=== PATIENT | female | born 1965 | race Caucasian/White ===

== ENCOUNTER → 2020-11-03 09:48 | Outpatient (CLI) | payer BC, SELFPAY ==
--- NOTE | ~2020-11-03 | XR_ITS ---
EXAMINATION: XR heel LT min 2V DATE: 11/03/2020 10:09 INDICATION: Left heel pain. TECHNIQUE: 2 views of left calcaneus were obtained. COMPARISON: None. FINDINGS: Bone alignment is normal. No fracture. Joint spaces are normal. There are enthesophytes at the posterior and plantar aspects of calcaneal tuberosity. IMPRESSION: 1. No fracture. Reviewed, dictated and finalized at location A. IMPRESSION: 1. No fracture.
== END ==
PROVIDERS: PCP Family Medicine; Visit Provider Family Medicine
DX: M79.672 Pain in left foot (principal)
CPT/HCPCS: 73650

== ENCOUNTER → 2021-06-20 16:03 | Outpatient (CLI) | payer OTHER, BC, SELFPAY ==
--- NOTE | ~2021-06-20 | MR_ITS ---
EXAMINATION: MR shoulder LT wo con DATE: 06/20/2021 16:50 INDICATION: Left shoulder pain TECHNIQUE: Magnetic resonance imaging (MRI) of the left shoulder was performed without intravenous co ntrast. Sequences included axial PD-weighted FS FSE, coronal oblique PD-weighted FS FSE, coronal obli que T2-weighted FS FSE, sagittal PD-weighted FS FSE, and sagittal T1-weighted SE. COMPARISON: None. FINDINGS: Coracoacromial arch: The acromion undersurface is curved in morphology (type II). The coracoacromial ligament is normal. M ild acromioclavicular osteoarthritis. Rotator cuff: Mild tendinopathy without discrete tear at the infraspinatus tendon and conjoined portion of the supr aspinatus and infraspinatus tendons. The subscapularis tendon is normal. Normal rotator cuff muscle b ulk and signal. Biceps tendon, glenoid labrum and glenohumeral cartilage: Long head of the biceps tendon is normal. Superior, anterior to posterior tear of the glenoid labrum (SLAP tear) centimeters from the 12:30 position anteriorly to the 10:30 position posteriorly. Mild g lenohumeral osteoarthritis with partial thickness cartilage loss without degenerative subchondral matteo nges along the cephalad third of the glenoid as well as at the apex of the humeral head. Fluid: Physiologic amount of fluid in the glenohumeral joint and biceps tendon sheath. No loose osteochondr al bodies. Small amount of fluid in the subacromial/subdeltoid bursa consistent with mild bursitis. Bones: Normal marrow signal with no edema, fracture or pathologic marrow replacing process. IMPRESSION: 1. Mild left glenohumeral osteoarthritis with SLAP tear of the superior to posterior superior glenoid labrum. 2. Mild tendinopathy without tear at the infraspinatus tendon and conjoined portion of the supraspina tus/infraspinatus tendons. 3. Mild subacromial/subdeltoid bursitis. Reviewed, dictated and finalized at location A. IMPRESSION: 1. Mild left glenohumeral osteoarthritis with SLAP tear of the superior to post erior superior glenoid labrum. 2. Mild tendinopathy without tear at the infraspinatus tendon and conjoined por tion of the supraspinatus/infraspinatus tendons. 3. Mild subacromial/subdeltoid bursitis.
== END ==
PROVIDERS: Visit Provider Nurse Practitioner Family
DX: M19.012 Primary osteoarthritis, left shoulder (principal); S43.432A Superior glenoid labrum lesion of left shoulder, initial encounter; M75.52 Bursitis of left shoulder; S46.912A Strain of unspecified muscle, fascia and tendon at shoulder and upper arm level, left arm, initial encounter
CPT/HCPCS: 73221

== ENCOUNTER 2022-11-09 14:20 | Outpatient (CLI) | payer BC, SELFPAY ==
--- NOTE | 2022-11-09 | ECHO_ITS ---
Patient Info Name: Celena Farrell Age: 56 years : 1965 Gender: Female Ht: 67 in Wt: 205 lbs BSA: 2.13 m2 HR: 78 bpm BP: 124 / 72 mmHg Technical Quality: Fair Exam Date: 11/09/2022 3:12 PM Exam Location: [facility] Patient Status: Outpatient Admit Date: 11/09/2022 Staff Ordering Physician: EleazarKera NP City Administrator: Melissa Leung RDCS Attending Provider: Eleazar, Kera NICHOLE Exam Type: CA echo doppler color flow Study Info Indications - cardiac murmur Complete two-dimensional, color flow and Doppler transthoracic echocardiogram is performed. Summary 1. Complete two-dimensional, color flow and Doppler transthoracic echocardiogram is performed. 2. Left ventricular chamber dimension is normal. 3. Left ventricular systolic function is normal, estimated at 65-70%. 4. The left ventricular diastolic function is grade I diastolic dysfunction. 5. E/e' 6 is not elevated. 6. Left atrial chamber dimension is mildly enlarged. 7. Right atrial chamber dimension is mildly enlarged. 8. There is trace mitral valve regurgitation. 9. There is mild tricuspid valve regurgitation. 10. No pulmonary hypertension, estimated pulmonary arterial systolic pressure is 26 mmHg. Left Ventricle E/e' 6 is not elevated. Left ventricular chamber dimension is normal. Left ventricular systolic function is normal, estimated at 65-70%. The left ventricular diastolic function is grade I diastolic dysfunction. Right Ventricle Right ventricular chamber dimension is normal. Right ventricular systolic function is normal. Left Atria Left atrial chamber dimension is mildly enlarged. Right Atria Right atrial chamber dimension is mildly enlarged. Aortic Valve The aortic valve is trileaflet. There is no aortic valve stenosis. There is no aortic valve regurgitation. Pulmonic Valve There is no pulmonic regurgitation. Mitral Valve There is no mitral valve stenosis. There is trace mitral valve regurgitation. Tricuspid Valve There is mild tricuspid valve regurgitation. No pulmonary hypertension, estimated pulmonary arterial systolic pressure is 26 mmHg. Pericardium/Pleural There is no pericardial effusion. Inferior Vena Cava Normal inferior vena cava with >50% collapse upon inspiration consistent with normal right atrial pressure, 5 mmHg. Aorta The aortic root size at the sinus of Valsalva is normal. Left Ventricular Outflow Tract Name Value Normal LVOT 2D LVOT Diameter 2.0 cm LVOT Doppler LVOT Peak Gradient 3 mmHg LVOT Mean Gradient 2 mmHg LVOT VTI 19 cm LVOT VTI/AV VTI Ratio 0.7 LVOT Stroke Volume 57 ml LVOT CO 11.6 l/min LVOT CI 5.4 l/min/m2 Pulmonic Valve Name Value Normal PV Doppler PV Peak Gradient 3 mmHg M
== END 2022-11-09 14:21 | disposition home or self-care (01) ==
PROVIDERS: Visit Provider Nurse Practitioner Family
DX: R01.1 Cardiac murmur, unspecified (principal)
CPT/HCPCS: 93306

== ENCOUNTER → 2022-12-04 14:12 | Outpatient (CLI) | payer BC, SELFPAY ==
--- NOTE | ~2022-12-04 | MR_ITS ---
EXAMINATION: MR cervical spine wo con DATE: 12/04/2022 15:49 INDICATION: Paresthesias. Left arm pain. Left hand pain. Left leg numbness and pain. TECHNIQUE: Magnetic resonance imaging (MRI) of the cervical spine was performed without intravenous c ontrast. COMPARISON: None FINDINGS: There is mild kyphosis of cervical spine. There is 2 mm retrolisthesis of C5 on C6. Vertebr al body heights are normal. There is severely decreased disc height at C5-C6. The spinal cord signal intensity is normal. The following disc levels are specifically discussed: C2-C3: The disc does not extend beyond the endplate margin. There is no uncovertebral joint osteoarth ritis. There is mild bilateral facet joint osteoarthritis. There is no neural foraminal stenosis. The re is no central canal stenosis. C3-C4: The disc does not extend beyond the endplate margin. There is no uncovertebral joint osteoarth ritis. There is mild right facet joint osteoarthritis. There is no neural foraminal stenosis. There i s no central canal stenosis. C4-C5: The disc does not extend beyond the endplate margin. There is no uncovertebral joint osteoarth ritis. There is moderate left facet joint osteoarthritis. There is no neural foraminal stenosis. Ther e is no central canal stenosis. C5-C6: There is a central extrusion. There is severe bilateral uncovertebral joint osteoarthritis. Th ere is mild bilateral facet joint osteoarthritis. There is mild bilateral neural foraminal stenosis. There is mild central canal stenosis. C6-C7: There is a central extrusion that may originate from the C5-C6 disc. There is mild bilateral u ncovertebral joint osteoarthritis. There is no facet joint osteoarthritis. There is no neural foramin al stenosis. There is moderate central canal stenosis with ventral and dorsal indentation of the spin al cord. C7-T1: The disc does not extend beyond the endplate margin. There is no uncovertebral joint osteoarth ritis. There is moderate right and severe left facet joint osteoarthritis. There is mild left neural foraminal stenosis. There is no central canal stenosis. IMPRESSION: 1. Severe cervical spondylosis. Reviewed, dictated and finalized at location A.
== END ==
PROVIDERS: PCP Family Medicine; Visit Provider Family Medicine
DX: M54.2 Cervicalgia (principal); M43.02 Spondylolysis, cervical region; R53.83 Other fatigue; H57.10 Ocular pain, unspecified eye; H04.123 Dry eye syndrome of bilateral lacrimal glands; E03.9 Hypothyroidism, unspecified; R29.2 Abnormal reflex
CPT/HCPCS: 72141

== ENCOUNTER → 2023-03-07 16:41 | Outpatient (CLI) | payer BC, SELFPAY ==
--- NOTE | ~2023-03-07 | XR_ITS ---
EXAMINATION: XR cervical spine 4-5V DATE: 03/07/2023 17:08 INDICATION: Neck pain. TECHNIQUE: 7 views of cervical spine including flexion and extension views were obtained. COMPARISON: Cervical spine MRI 12/04/2022 FINDINGS: Bone alignment is normal. Vertebral body heights are normal. There is no abnormal motion wi th flexion or extension. There is severely decreased disc height at C5-C6. At C5-C6, there is severe bilateral uncovertebral joint osteoarthritis. There is multilevel mild facet joint osteoarthritis. Th ere is mild central canal stenosis at C5-C6. No prevertebral soft tissue swelling. IMPRESSION: 1. Severe spondylosis at C5-C6. Reviewed, dictated and finalized at location A. CH BOILER PULLER
--- NOTE | ~2023-03-07 | XR_ITS ---
EXAMINATION: XR shoulder LT min 2V DATE: 03/07/2023 17:08 INDICATION: Left shoulder pain. TECHNIQUE: 4 views of left shoulder were obtained. COMPARISON: None. FINDINGS: Bone alignment is normal. No fracture. Glenohumeral joint is normal. There is mild acromioc lavicular joint osteoarthritis. IMPRESSION: 1. Mild acromioclavicular joint osteoarthritis. Reviewed, dictated and finalized at location A. NOHEMATOLOGIST
== END ==
PROVIDERS: PCP Family Medicine; Visit Provider Neurological Surgery
DX: M43.02 Spondylolysis, cervical region (principal); M19.012 Primary osteoarthritis, left shoulder
CPT/HCPCS: 72050; 73030

== ENCOUNTER 2023-04-16 13:43 | Outpatient (CLI) | payer BC, SELFPAY ==
--- NOTE | 2023-04-16 14:30 | NEURO_ITS ---
Impression: # Non-diabetic complains of numbness of left hand. # Right mild Carpal Tunnel Syndrome.. # Left moderate Carpal Tunnel Syndrome. # No ulnar neuropathy. # Needle/EMG exam mildly neurogenic in left APB. Nerve Conduction Studies Anti Sensory Summary Table Stim Site NR Peak (ms) P-T Amp (?V) Site1 Site2 Delta-P (ms) Dist (cm) David (m/s) Left Median Anti Sensory (2-3nd Digit) Wrist 4.6 27.7 Wrist 2-3nd Digit 4.6 14.0 30 Wrist 4.7 24.3 Wrist 2-3nd Digit 4.6 14.0 30 Right Median Anti Sensory (2-3nd Digit) Wrist 4.2 49.0 Wrist 2-3nd Digit 4.2 14.0 33 Wrist 4.3 38.2 Wrist 2-3nd Digit 4.2 14.0 33 Left Radial Anti Sensory (Base 1st Digit) Wrist 2.1 13.1 Wrist Base 1st Digit 2.1 0.0 Right Radial Anti Sensory (Base 1st Digit) Wrist 2.2 20.7 Wrist Base 1st Digit 2.2 0.0 Left Ulnar Anti Sensory (5th Digit) Wrist 2.7 54.5 Wrist 5th Digit 2.7 14.0 52 Right Ulnar Anti Sensory (5th Digit) Wrist 2.4 30.9 Wrist 5th Digit 2.4 14.0 58 Motor Summary Table Stim Site NR Onset (ms) O-P Amp (mV) Site1 Site2 Delta-0 (ms) Dist (cm) David (m/s) Left Median Motor (Abd Poll Brev) Wrist 4.4 1.4 Elbow Wrist 4.3 26.0 60 Elbow 8.7 5.6 Right Median Motor (Abd Poll Brev) Wrist 3.7 1.9 Elbow Wrist 5.1 27.0 53 Elbow 8.8 1.3 Left Ulnar Motor (Abd Dig Minimi) Wrist 2.5 8.7 A Elbow Wrist 4.6 27.0 59 A Elbow 7.1 7.7 Right Ulnar Motor (Abd Dig Minimi) Wrist 2.8 7.8 A Elbow Wrist 5.0 29.0 58 A Elbow 7.8 6.6 F Wave Studies NR F-Lat (ms) L-R F-Lat (ms) Left Median (Mrkrs) (Abd Poll Brev) 28.99 1.44 Right Median (Mrkrs) (Abd Poll Brev) 27.55 1.44 Left Ulnar (Mrkrs) (Abd Dig Min) 27.73 0.47 Right Ulnar (Mrkrs) (Abd Dig Min) 27.27 0.47 EMG Side Muscle Nerve Root Ins Act Fibs Amp Dur Recrt Comment Right 1stDorInt Ulnar C8-T1 Nml Nml Nml Nml Nml Right Ext Indicis Radial (Post Int) C7-8 Nml Nml Nml Nml Nml Right Ext Digitorum Radial (Post Int) C7-8 Nml Nml Nml Nml Nml Right BrachioRad Radial C5-6 Nml Nml Nml Nml Nml Right PronatorTeres Median C6-7 Nml Nml Nml Nml Nml Right Abd Poll Brev Median C8-T1 Nml Nml Nml Nml Nml Left 1stDorInt Ulnar C8-T1 Nml Nml Nml Nml Nml Left Ext Indicis Radial (Post Int) C7-8 Nml Nml Nml Nml Nml Left Ext Digitorum Radial (Post Int) C7-8 Nml Nml Nml Nml Nml Left BrachioRad Radial C5-6 Nml Nml Nml Nml Nml Left PronatorTeres Median C6-7 Nml Nml Nml Nml Nml Left Abd Poll Brev Median C8-T1 Nml Nml Nml >12ms Reduced MTDD
== END 2023-04-16 13:44 | disposition home or self-care (01) ==
LOC: ANHNEURO 13:44
PROVIDERS: PCP Family Medicine; Visit Provider Neurological Surgery
DX: G56.03 Carpal tunnel syndrome, bilateral upper limbs (principal)
CPT/HCPCS: 95886; 95911

== ENCOUNTER 2023-11-04 16:11 | Outpatient (CLI) | payer BC, SELFPAY ==
--- NOTE | ~2023-11-04 | XR_ITS ---
XR abdomen/kub 1V Ordering provider: Em Tam MD History: . IBS . Comparison: None. FINDINGS: BOWEL: Fecal material is seen in the colon suggestive of constipation. Nonobstructive bowel gas patte rn. ORGANOMEGALY: None. Status post cholecystectomy. SIGNIFICANT PATHOLOGIC CALCIFICATIONS: None. OTHER: No free air is seen under the diaphragm. Degenerative changes of the spine. IMPRESSION: NO ACUTE ABDOMINAL FINDINGS. Constipation. Reviewed, dictated and finalized at location A.
== END 2023-11-04 16:12 ==
PROVIDERS: PCP Family Medicine; Visit Provider Family Medicine
DX: R19.5 Other fecal abnormalities (principal); R32 Unspecified urinary incontinence; K59.00 Constipation, unspecified
CPT/HCPCS: 74018

== ENCOUNTER 2023-11-28 15:41 | Outpatient (CLI) | payer BC, OTHER, SELFPAY ==
--- NOTE | ~2023-11-28 | XR_ITS ---
EXAMINATION: XR hip RT min 2V DATE: 11/28/2023 16:03 INDICATION: Right hip pain. TECHNIQUE: 2 views of right hip were obtained. COMPARISON: None. FINDINGS: Bone alignment is normal. No fracture. There is severe lumbar spondylosis. There is mild ri ght hip osteoarthritis. IMPRESSION: 1. Mild right hip osteoarthritis. Reviewed, dictated and finalized at location A.
== END 2023-11-28 15:42 | disposition home or self-care (01) ==
PROVIDERS: PCP Nurse Practitioner Family; Visit Provider Nurse Practitioner Family
DX: M16.11 Unilateral primary osteoarthritis, right hip (principal); M70.61 Trochanteric bursitis, right hip
CPT/HCPCS: 73502

== ENCOUNTER 2024-02-07 14:44 | Outpatient (CLI) | payer OTHER, SELFPAY ==
--- NOTE | ~2024-02-07 | MR_ITS ---
Corrected Report Correction to Ordering Provider 02/10/2024 [facility] This report was recreated on 02/10/2024. Original report was signed by Mike Jorge M.D. 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 MRI of the right ankle Clinical history: Heel pain Technique: Coronal proton-density and proton-density fat-sat images, axial proton-density and proton-density fat-sat images, and sagittal proton-density and proton-density fat-sat images were acquired. Findings: Syndesmotic ligaments are intact. Anterior and posterior talofibular ligaments, and calcaneofibular ligament are intact. Deltoid ligament intact. Medial flexor tendons, peroneal tendons, anterior extensor tendons, and Achilles tendon are intact. There is no osteochondral lesion of the talar dome. Bone marrow signals and joint spaces are intact. No significant joint effusion. There is mild thickening and increased signal at the origin of the plantar fascia, with tiny plantar calcaneal spur. There is nonspecific soft tissue edema of Kager's fat pad, with additional subcutaneous soft tissue edema over the medial aspect of the ankle. Impression: Nonspecific soft tissue edema involving Kager's fat pad and in the medial ankle subcutaneous soft tissues. Mild plantar fasciitis. Reviewed, dictated and finalized at location . INUOUS WASHER OPERATOR MTDD Impression: Nonspecific soft tissue edema involving Kager's fat pad and in the medial ankle subcutaneous soft tissues. Mild plantar fasciitis.
== END 2024-02-07 14:45 | disposition home or self-care (01) ==
LOC: GOSHIMG 14:44
PROVIDERS: PCP Nurse Practitioner Family
DX: R60.0 Localized edema (principal); M72.2 Plantar fascial fibromatosis
CPT/HCPCS: 73721